=== PATIENT | female | born 1975 | race Asian ===

== ENCOUNTER 2018-05-29 20:19 | Inpatient (IN) | payer MEDICAID, OTHER ==
[~2018-05-29] VITALS: Ht 167.6 cm; Wt 75.0 kg
[~2018-05-29 20:19] MED LIST: CALC-141 PO; DOCU240C31 PO; FLUT1DIS3 INH; IBUP-1222 PO; LEVO100T PO; OXYC-302 PO
[2018-05-29] MEDS ORDERED: METOCLOPRAMIDE 5 MG/ML, 2ML ONE (20:36)
[2018-05-29 20:46] LABS: MEAN CORPUSCULAR HEMOGLOBIN 30.4 pg (27.0-34.8); MEAN CORPUSCULAR HGB CONC 34.7 g/dL (32.4-35.8); MEAN CORPUSCULAR VOLUME 87.4 fL (80-100); MEAN PLATELET VOLUME 7.6 fL (7.4-10.4); PLATELET COUNT 389 x10^3/uL (130-400); RED BLOOD COUNT 4.94 x10^6/uL (3.82-5.3); RED CELL DISTRIBUTION WIDTH 13.4 % (9.6-15.2)
[2018-05-29 20:57] LABS: ALANINE AMINOTRANSFERASE 36 U/L (12-78); ANION GAP 11 mmol/L (5-15); CALCIUM 6.7 mg/dL (8.5-10.1); CHLORIDE 102 mmol/L (98-107); CREATININE 0.78 mg/dL (0.55-1.02)
[2018-05-29 20:59] LABS: ALKALINE PHOSPHATASE 72 U/L (45-117); BILIRUBIN,TOTAL 0.6 mg/dL (0.2-1.0); TOTAL PROTEIN 8.8 g/dL (6.4-8.2)
[2018-05-29] MEDS ORDERED: SODIUM CHLORIDE 0.9% 1,000ML IVBOLUS ONE (21:00)
[2018-05-29] MEDS ORDERED: SODIUM CHLORIDE FLUSH 10ML SYR IVF ONE (21:00)
[2018-05-29] MEDS ORDERED: METOCLOPRAMIDE 5 MG/ML, 2ML IVPush ONE (21:00)
[2018-05-29 21:19] LABS: BASOPHILS # (AUTO) 0.05 x10^3/uL (0-0.1); BASOPHILS % (AUTO) 0 % (0-1); EOSINOPHILS # (AUTO) 0.02 x10^3/uL (0-0.4); EOSINOPHILS % (AUTO) 0 % (1-7); LYMPHOCYTES # (AUTO) 1.18 x10^3/uL (1-3.4); LYMPHOCYTES % (AUTO) 6 % (22-44); MD MORPH REVIEW ONLY; MONOCYTES # (AUTO) 0.87 x10^3/uL (0.2-0.8); MONOCYTES % (AUTO) 4 % (2-9); NEUTROPHILS # (AUTO) 18.44 x10^3/uL (1.8-6.8); NEUTROPHILS % (AUTO) 90 % (42-75)
[2018-05-29 21:20] LABS: <PLATELET ESTIMATE> ADEQUATE; <RBC MORPHOLOGY> NORMAL; PMNS WITH VACUOLES 1+
[2018-05-29 21:21] LABS: LARGE PLATELETS 1+
[2018-05-29] MEDS ORDERED: OMNIPAQUE 350 MG/ML, 100ML BOTTLE ONE (21:26)
[2018-05-29] MEDS ORDERED: PROMETHAZINE 25 MG/ML, 1ML IM ONE (21:30)
[2018-05-29] MEDS ORDERED: POTASSIUM CHLORIDE 40 MEQ in SODIUM CHLORIDE 0.9% 500 ML IV ONE (21:30)
[2018-05-29] MEDS ORDERED: PROMETHAZINE 25 MG/ML, 1ML ONE (21:37)
[2018-05-29 21:50] LABS: MICROSCOPIC NOT IND
[2018-05-29 21:53] LABS: CULTURE INDICATED? NO
[2018-05-29] MEDS ORDERED: LEVO88TA2 PO (23:56)
[2018-05-29 23:59] VITALS: BP 114/73
[2018-05-30] MEDS ORDERED: ONDANSETRON 2MG/ML, 2ML IVPush PRN (00:30)
[2018-05-30] MEDS ORDERED: ONDANSETRON ODT 4 MG PO PRN (00:30)
[2018-05-30] MEDS ORDERED: ACETAMINOPHEN 325 MG TABLET PO PRN (00:30)
[2018-05-30] MEDS ORDERED: METOCLOPRAMIDE 5 MG/ML, 2ML IVPush PRN (00:30)
[2018-05-30] MEDS ORDERED: PROMETHAZINE 25 MG/ML, 1ML IM PRN (00:30)
[2018-05-30 00:56] LABS: FREE T4 (FREE THYROXINE) 1.26 ng/dL (0.76-1.46); THYROID STIMULATING HORMONE 2.07 mIU/L (0.358-3.740)
[2018-05-30] MEDS: SODIUM CHLORIDE 0.9% 1,000 ML IV SCH ×4 (01:53→22:52)
[2018-05-30 01:56] VITALS: BP 104/71
[2018-05-30 05:33] LABS: BASOPHILS # (AUTO) 0.03 x10^3/uL (0-0.1); BASOPHILS % (AUTO) 0 % (0-1); EOSINOPHILS # (AUTO) 0.02 x10^3/uL (0-0.4); EOSINOPHILS % (AUTO) 0 % (1-7); LYMPHOCYTES % (AUTO) 11 % (22-44); MD NO; MEAN CORPUSCULAR HEMOGLOBIN 30.4 pg (27.0-34.8); MEAN CORPUSCULAR HGB CONC 34.1 g/dL (32.4-35.8); MEAN PLATELET VOLUME 7.9 fL (7.4-10.4); MONOCYTES # (AUTO) 1.04 x10^3/uL (0.2-0.8); MONOCYTES % (AUTO) 9 % (2-9); NEUTROPHILS # (AUTO) 8.99 x10^3/uL (1.8-6.8); NEUTROPHILS % (AUTO) 80 % (42-75); PLATELET COUNT 347 x10^3/uL (130-400); RED BLOOD COUNT 4.33 x10^6/uL (3.82-5.3); RED CELL DISTRIBUTION WIDTH 13.4 % (9.6-15.2)
[2018-05-30 05:40] LABS: CHLORIDE 109 mmol/L (98-107)
[2018-05-30 05:47] LABS: ALANINE AMINOTRANSFERASE 28 U/L (12-78); ALBUMIN 3.1 g/dL (3.4-5.0); ALKALINE PHOSPHATASE 53 U/L (45-117); ANION GAP 9 mmol/L (5-15); BILIRUBIN,TOTAL 0.7 mg/dL (0.2-1.0); CREATININE 0.57 mg/dL (0.55-1.02)
[2018-05-30] MEDS: ENOXAPARIN 40 MG/0.4 ML SQ SCH (05:52)
[2018-05-30] MEDS: LEVOTHYROXINE 88 MCG TABLET PO SCH (05:52)
[2018-05-30 07:10] VITALS: BP 113/71
[2018-05-30] MEDS: FAMOTIDINE 20 MG/2 ML IVPush SCH ×2 (08:10→21:16)
[2018-05-30] MEDS: CALCIUM CARBONATE 500 MG TABLET PO SCH ×2 (08:10→21:00)
[2018-05-30] MEDS: FLUTICASONE/VILANTEROL 100-25MCG/INH INH SCH (09:29)
[2018-05-30 12:36] VITALS: BP 109/69
[2018-05-30] MEDS ORDERED: POTASSIUM CHLORIDE 20 MEQ TAB.ER.PRT PO ONE (13:00)
[2018-05-30 19:38] VITALS: BP 123/79
[2018-05-31 03:33] VITALS: BP 133/80
[2018-05-31 05:28] LABS: BASOPHILS # (AUTO) 0.01 x10^3/uL (0-0.1); BASOPHILS % (AUTO) 0 % (0-1); EOSINOPHILS # (AUTO) 0.11 x10^3/uL (0-0.4); EOSINOPHILS % (AUTO) 2 % (1-7); LYMPHOCYTES # (AUTO) 1.91 x10^3/uL (1-3.4); LYMPHOCYTES % (AUTO) 30 % (22-44); MD NO; MEAN CORPUSCULAR HEMOGLOBIN 30.6 pg (27.0-34.8); MEAN CORPUSCULAR HGB CONC 34.3 g/dL (32.4-35.8); MEAN CORPUSCULAR VOLUME 89.3 fL (80-100); MEAN PLATELET VOLUME 7.5 fL (7.4-10.4); MONOCYTES # (AUTO) 0.82 x10^3/uL (0.2-0.8); MONOCYTES % (AUTO) 13 % (2-9); NEUTROPHILS # (AUTO) 3.53 x10^3/uL (1.8-6.8); NEUTROPHILS % (AUTO) 55 % (42-75); PLATELET COUNT 299 x10^3/uL (130-400); RED BLOOD COUNT 3.84 x10^6/uL (3.82-5.3); RED CELL DISTRIBUTION WIDTH 13.3 % (9.6-15.2)
[2018-05-31 05:37] LABS: ANION GAP 7 mmol/L (5-15); CHLORIDE 112 mmol/L (98-107)
[2018-05-31] MEDS: LEVOTHYROXINE 88 MCG TABLET PO SCH (05:49)
[2018-05-31] MEDS: SODIUM CHLORIDE 0.9% 1,000 ML IV SCH ×2 (05:50→14:18)
[2018-05-31] MEDS: ENOXAPARIN 40 MG/0.4 ML SQ SCH (05:50)
[2018-05-31 05:52] LABS: CALCIUM 5.3 mg/dL (8.5-10.1)
[2018-05-31] MEDS ORDERED: SODIUM CHLORIDE 0.9% IV ONE ×2 (06:30→18:30)
[2018-05-31] MEDS ORDERED: CALCIUM CHLORIDE IV ONE ×2 (06:30→18:30)
[2018-05-31 07:03] VITALS: BP 137/84
[2018-05-31] MEDS: FAMOTIDINE 20 MG/2 ML IVPush SCH (08:44)
[2018-05-31] MEDS: MAGNESIUM CHLORIDE 64 MG TABLET.DR PO SCH (08:45)
[2018-05-31] MEDS: CALCIUM CARBONATE 500 MG TABLET PO SCH ×2 (08:45→20:19)
[2018-05-31] MEDS: FLUTICASONE/VILANTEROL 100-25MCG/INH INH SCH (10:20)
[2018-05-31 12:31] VITALS: BP 144/84
[2018-05-31 12:52] LABS: ALBUMIN 3.6 g/dL (3.4-5.0); ANION GAP 6 mmol/L (5-15); CALCIUM 6.1 mg/dL (8.5-10.1); CHLORIDE 106 mmol/L (98-107)
[2018-05-31 12:57] LABS: ALANINE AMINOTRANSFERASE 36 U/L (12-78); ALKALINE PHOSPHATASE 55 U/L (45-117); BILIRUBIN,TOTAL 0.6 mg/dL (0.2-1.0); CREATININE 0.54 mg/dL (0.55-1.02); TOTAL PROTEIN 8.2 g/dL (6.4-8.2)
[2018-05-31] MEDS ORDERED: POTASSIUM CHLORIDE 40 MEQ in SODIUM CHLORIDE 0.9% 500 ML IV ONE (13:30)
[2018-05-31] MEDS ORDERED: POTASSIUM CHLORIDE 20 MEQ TAB.ER.PRT PO ONE (13:30)
[2018-05-31 17:26] LABS: ALBUMIN 3.4 g/dL (3.4-5.0); ANION GAP 6 mmol/L (5-15); CALCIUM 6.3 mg/dL (8.5-10.1); CHLORIDE 109 mmol/L (98-107); CREATININE 0.56 mg/dL (0.55-1.02)
[2018-05-31] MEDS ORDERED: MAGNESIUM SULFATE IV ONE (18:30)
[2018-05-31] MEDS ORDERED: CALCIUM GLUCONATE 4.6 MEQ/10 ML IVPush ONE (18:30)
[2018-05-31] MEDS ORDERED: MAGNESIUM SULFATE PMX 1GM/100ML IV SCH (18:30)
[2018-05-31 19:23] VITALS: BP 133/82
[2018-05-31] MEDS: FAMOTIDINE 20 MG TABLET PO SCH (20:19)
[2018-06-01] MEDS: SODIUM CHLORIDE 0.9% 1,000 ML IV SCH (02:42)
[2018-06-01 03:17] VITALS: BP 126/80
[2018-06-01] MEDS: ENOXAPARIN 40 MG/0.4 ML SQ SCH (05:17)
[2018-06-01] MEDS: LEVOTHYROXINE 88 MCG TABLET PO SCH (05:17)
[2018-06-01 05:42] LABS: ALBUMIN 3.1 g/dL (3.4-5.0); ANION GAP 6 mmol/L (5-15); CALCIUM 6.7 mg/dL (8.5-10.1); CHLORIDE 108 mmol/L (98-107)
[2018-06-01 05:43] LABS: CREATININE 0.61 mg/dL (0.55-1.02)
[2018-06-01 06:56] VITALS: BP 134/88
[2018-06-01] MEDS ORDERED: POTASSIUM CHLORIDE 20 MEQ TAB.ER.PRT PO ONE (07:00)
[2018-06-01] MEDS: CALCIUM CARBONATE 500 MG TABLET PO SCH (08:22)
[2018-06-01] MEDS: FAMOTIDINE 20 MG TABLET PO SCH (08:22)
[2018-06-01] MEDS: MAGNESIUM CHLORIDE 64 MG TABLET.DR PO SCH (08:22)
[2018-06-01] MEDS: FLUTICASONE/VILANTEROL 100-25MCG/INH INH SCH (08:23)
[2018-06-01] MEDS ORDERED: CALC-666 PO (10:52)
[2018-06-01] MEDS ORDERED: CHOL500045 PO (10:52)
== END 2018-06-01 11:32 | disposition home or self-care (01) | DRG 392 ==
LOC: ED 23:24 → EDIP 23:25 → 4EST 23:44 → DCLOUNGE 06-01 11:22
PROVIDERS: ADMIT Family Medicine; ATTEND Family Medicine
DX: A09 Infectious gastroenteritis and colitis, unspecified (principal); E83.42 Hypomagnesemia; E83.51 Hypocalcemia; E86.0 Dehydration; E86.9 Volume depletion, unspecified; E87.6 Hypokalemia; E89.0 Postprocedural hypothyroidism; I45.81 Long QT syndrome; J45.909 Unspecified asthma, uncomplicated; Z87.891 Personal history of nicotine dependence; Z90.710 Acquired absence of both cervix and uterus; Z90.49 Acquired absence of other specified parts of digestive tract
CPT/HCPCS: 36415; 87046; 87427; 99285; S0028; 74177; 80048; 80053; 81003; 82040; 83690; 83735; 84439; 84443; 85025; 93005; 96361; 96372; 96374; J1650; J2550; J3475; J3480; Q9967; J2765; J7030; J7040

== ENCOUNTER 2020-09-28 08:35 | Emergency (ER) | payer MEDICAID, OTHER ==
[~2020-09-28] VITALS: Ht 167.6 cm; Wt 78.0 kg
[~2020-09-28 08:35] MED LIST changes: +CALC500T14 PO; +CHOL500045 PO; +LEVO88TA2 PO
--- NOTE | 2020-09-28 09:05 | NUR ---
PT C/O SORE THROAT, HEADACHE, CONGESTION, SOB, AND BURNING EYES. PT WAS EXPOSED TUESDAY AT WORK. PT DENIES FEVER OR CP. HOME SPO2 WAS 92%. PT CAME IN DUE TO FEELING WORSE.
--- NOTE | 2020-09-28 09:09 | NUR ---
RAPID COVID DONE AT PT'S WORK AND WAS COVID POSITIVE TUESDAY MORNING.
[2020-09-28 09:58] LABS: BASOPHILS % (AUTO) 1 % (0-1); EOSINOPHILS % (AUTO) 3 % (1-7); LYMPHOCYTES % (AUTO) 35 % (22-44); MEAN CORPUSCULAR HGB CONC 34.3 g/dL (32.4-35.8); MEAN PLATELET VOLUME 7.4 fL (7.4-10.4); MONOCYTES % (AUTO) 9 % (2-9); NEUTROPHILS % (AUTO) 52 % (42-75); PLATELET COUNT 352 x10^3/uL (130-400); RED CELL DISTRIBUTION WIDTH 13.5 % (9.6-15.2)
[2020-09-28 10:00] LABS: MD NO
[2020-09-28 10:08] LABS: ALANINE AMINOTRANSFERASE 99 U/L (12-78); ALBUMIN 3.9 g/dL (3.4-5.0); ANION GAP 7 mmol/L (5-15); CALCIUM 7.5 mg/dL (8.5-10.1); CHLORIDE 106 mmol/L (98-107); CREATININE 0.61 mg/dL (0.55-1.02)
[2020-09-28 10:10] LABS: ALKALINE PHOSPHATASE 91 U/L (45-117); BILIRUBIN,TOTAL 0.4 mg/dL (0.2-1.0); TOTAL PROTEIN 8.6 g/dL (6.4-8.2)
[2020-09-28 10:43] VITALS: BP 141/88
--- NOTE | 2020-09-28 11:00 | NUR ---
PT RECIVED DC IN STRUCTIONS AND EDUCATION. PT HAD NO QUESTIONS. PT MBULATED TO DC AREA, STEADY GAIT.
== END 2020-09-28 11:17 | disposition home or self-care (01) ==
LOC: ED 09:15
DX: U07.1 COVID-19 (principal); B34.9 Viral infection, unspecified; R00.0 Tachycardia, unspecified; R94.31 Abnormal electrocardiogram [ECG] [EKG]; I51.7 Cardiomegaly; Z90.49 Acquired absence of other specified parts of digestive tract; Z90.710 Acquired absence of both cervix and uterus; Z87.891 Personal history of nicotine dependence
CPT/HCPCS: 36415; 71045; 80053; 84145; 85025; 93005; 99285